=== PATIENT | male | born 1960 | race African-American/Black ===

== ENCOUNTER 2022-07-10 02:58 | Emergency (ER) | payer SELFPAY ==
[~2022-07-10] VITALS: Ht 177.8 cm; Wt 117.0 kg
[2022-07-10 03:51] LABS: BASOPHILS % 0.6 % (0.0-2.0); EOSINOPHILS % 1.1 % (0.0-5.0); HEMATOCRIT. 48.9 % (42.0-52.0); HEMOGLOBIN. 16.4 g/dL (14.0-18.0); LYMPHOCYTES % 11.7 % (20.0-50.0); MEAN CORPUSCULAR HEMOGLOBIN 29.7 pg (28.0-32.0); MEAN CORPUSCULAR VOLUME 88.3 fL (80.0-94.0); MEAN PLATELET VOLUME 8.8 fl (7.4-10.4); MONOCYTES % 8.2 % (2.0-8.0); NEUTROPHILS % 78.4 % (40.0-76.0); PLATELET 163 x1000/uL (130-400); RED BLOOD CELL COUNT 5.54 mill/uL (4.7-6.1); RED CELL DISTRIBUTION WIDTH 14.7 % (11.6-14.6)
[2022-07-10 04:01] LABS: CHLORIDE 98 mEq/L (98-107)
[2022-07-10 04:11] LABS: ETHANOL BLOOD < 10 mg/dL
[2022-07-10] MEDS ORDERED: MAGNESIUM OXIDE 400MG TABLET PO SCH (04:45)
[2022-07-10] MEDS ORDERED: POTASSIUM CHLORIDE 20MEQ TABLET SR PO ONE (04:45)
[2022-07-10] MEDS ORDERED: SODIUM CHLORIDE 0.9% 1,000 ML IV ONE (05:15)
[2022-07-10] MEDS ORDERED: DEXTROSE 50% WATER 50ML SYRINGE IV PRN (05:15)
[2022-07-10] MEDS ORDERED: INSULIN REGULAR (HUMULIN R) 300UNITS/3ML VIAL SUBCUT ONE (05:30)
[2022-07-10 06:00] VITALS: BP 157/101
[2022-07-10] MEDS ORDERED: INSULIN LISPRO 100 UNITS/ML SUBCUT SCH (08:20)
[2022-07-10] MEDS ORDERED: BLOOD SUGAR DIAGNOSTIC STRIP TEST SCH (09:00)
== END 2022-07-10 06:58 | disposition home or self-care (01) ==
LOC: ER 03:10
DX: R44.0 Auditory hallucinations (principal); R00.2 Palpitations; E11.9 Type 2 diabetes mellitus without complications; I10 Essential (primary) hypertension; Z88.0 Allergy status to penicillin; Z87.891 Personal history of nicotine dependence; Z20.822 Contact with and (suspected) exposure to COVID-19
CPT/HCPCS: 36415; 80053; 80307; 80320; 80329; 82962; 85025; 87426; 93005; 96360; 96372; 99284; C9803; J1815; J7030; G0480